=== PATIENT | female | born 1995 | race Caucasian/White ===

== ENCOUNTER 2016-12-26 14:04 | Emergency (ER) | payer BC ==
[~2016-12-26] VITALS: Ht 160 cm; Wt 50.8 kg
--- NOTE | 2016-12-26 14:35 | NUR ---
MSE DONE AT BEDSIDE BY DR MCPHERSON.
[2016-12-26] MEDS ORDERED: IBUPROFEN 400 MG TABLET PO ONE (14:45)
[2016-12-26] MEDS ORDERED: ACETAMINOPHEN ES 500 MG TABLET PO ONE (14:45)
--- NOTE | 2016-12-26 15:00 | NUR ---
Patient discharged to home in stable conditon. Written and verbal after care instructions given. Patient verbalizes understanding of instructions.
[2016-12-26] MEDS ORDERED: ACETAMINOPHEN ES 500 MG TABLET ONE (15:04)
[2016-12-26] MEDS ORDERED: IBUPROFEN 400 MG TABLET ONE (15:04)
== END 2016-12-26 15:05 | disposition home or self-care (01) ==
LOC: ER 14:04
DX: S33.5XXA Sprain of ligaments of lumbar spine, initial encounter (principal); M79.604 Pain in right leg; V49.9XXA Car occupant (driver) (passenger) injured in unspecified traffic accident, initial encounter; Y93.89 Activity, other specified; Y99.8 Other external cause status; Y92.89 Other specified places as the place of occurrence of the external cause
CPT/HCPCS: 99283; A4663